=== PATIENT | female | born 1955 | race African-American/Black ===

== ENCOUNTER 2018-07-18 11:02 | Day surgery (SDC) | payer OTHER ==
[2018-07-18] MEDS ORDERED: LR 1,000 ML IV ONE (11:31)
--- NOTE | 2018-07-18 12:12 | PDANEPAE ---
ANE History of Present Illness h/o polyps for colonoscopy ANE Past Medical History - Cardiovascular History Hx Hypertension: Yes Hx Arrhythmias: No Hx Chest Pain: No Hx Coronary Artery / Peripheral Vascular Disease: No Hx CHF / Valvular Disease: No Hx Palpitations: No Cardiovascular History Comment: high chol. pcp monitors bp meds - Pulmonary History Hx COPD: No Hx Asthma/Reactive Airway Disease: No Hx Recent Upper Respiratory Infection: No Hx Oxygen in Use at Home: No Hx Sleep Apnea: No Sleep Apnea Screening Result - Last Documented: Negative - Neurologic History Hx Cerebrovascular Accident: Yes Hx Seizures: No Hx Dementia: No Neurologic History Comment: mini stroke 10/2014 - NO RESIDUALS - Endocrine History Hx Diabetes: No Endocrine History Comment: pre-diabetic, currently trying to lose weight - Renal History Hx Renal Disorders: No - Liver History Hx Hepatic Disorders: No - Neurological & Psychiatric Hx Hx Neurological and Psychiatric Disorders: No - Cancer History Hx Cancer: Yes Cancer History Comment: left breast cancer 1991 had chemo and radiation and bone marrow transplant - Congenital Disorder History Hx Congenital Disorders: No - GI History Hx Gastrointestinal Disorders: Yes Gastrointestinal History Comment: REMVL COLON POLYPS 02/03/16. hx of colonoscopies with radha. occ constipation - Other Health History Other Health History: wears glasses. hx of anemia. OCCAS LEG SWELLING EMERSON - Chronic Pain History Chronic Pain: No - Surgical History Prior Surgeries: right toe surgery 07/2016. colonscopy 06/01/16, 02/03/16. left mastectomy 1991. left oophectomy 1978 ANE Review of Systems Review of Systems: - Exercise capacity METS (RN): 4 METS ANE Patient History - Allergies Allergies/Adverse Reactions: CATS Allergy (Uncoded 04/29/18 10:32) no reaction in 40 yrs - Home Medications Home medications: home medication list seen and reviewed Home Medications: Amlodipine Besylate DAILY 02/03/16 [Last Taken 07/17/18] Aspirin EC 81 mg (OTC) DAILY 02/03/16 [Last Taken 07/04/18] Lovastatin DAILY 02/03/16 [Last Taken 07/17/18] Potassium Cl [Klor-Con 10 meq (RX)] BID 02/03/16 [Last Taken 07/18/18] Triamterene-Hctz 37.5-25 mg Tb DAILY 02/03/16 [Last Taken 07/18/18] Irbesartan DAILY 05/15/16 [Last Taken 07/18/18] Herbals/Supplements -Info Only 04/29/18 [Last Taken 07/17/18] - NPO status NPO Since - Liquids (Date): 07/18/18 NPO Since - Liquids (Time): 03:30 NPO Since - Solids (Date): 07/17/18 NPO Since - Solids (Time): 06:30 - Anes Hx Anes Hx: no prior problems - Smoking Hx Smoking Status: Former smoker - Family Anes Hx Family Hx Anesthesia Complications: none ANE Labs/Vital Signs - Vital Signs Blood Pressure: 150/93 Heart Rate: 82 Respiratory Rate: 16 O2 Sat (%): 96 Height: 170.18 cm Weight: 68.039 kg ANE Physical Exam - Airway Neck exam: FROM Mallampati Score: Class 2 Mouth exam: normal dental/mouth exam - Pulmonary Pulmonary: no respiratory distress - Cardiovascular Cardiovascular: regular rate and rhythym - ASA Status ASA Status: II ANE Anesthesia Plan Anesthesia Plan: GA with mask
--- NOTE | 2018-07-18 12:19 | POSTANESTH ---
Post Anesthetic Evaluation Cardiovascular Status: Normal, Stable Respiratory Status: Normal, Stable Level of Consciousness/Mental Status: Can Participate in Eval Pain Control: Adequate, Prn Tx Ordered Nausea/Vomiting Control: Adequate, Prn Tx Ordered Complications Possibly Related to Anesthesia: None Noted
[2018-07-18] MEDS ORDERED: LIDOCAINE 2% 5 ML SDV ONE (12:22)
[2018-07-18] MEDS ORDERED: PROPOFOL 200 MG/20 ML VIAL ONE ×2 (12:22)
--- NOTE | 2018-07-18 12:33 | PDGENHP ---
History & Physical Chief Complaint: colon polyps History of Present Illness: 63 year old female presents for surveillance of complex right sided polyp. Pertinent Past, Social, Family History: PMHx; breast ca, hypercholesterolemia, htn, pre dm Relevant Physical Exam: HEENT: anicteric. CV: RRR +s1s2. Lungs: CTAB No w/r/ r. Abd: soft nt, + bs. NO guarding or rebound Cardiorespiratory Assessment: ASA 2
[2018-07-18] MEDS ORDERED: ACETAMINOPHEN 500 MG TAB PO PRN (12:52)
[2018-07-18] MEDS ORDERED: fentaNYL 100 MCG/2 ML INJ IVP PRN (12:52)
[2018-07-18] MEDS ORDERED: oxyCODONE IR 5 MG TAB PO PRN (12:52)
[2018-07-18] MEDS ORDERED: NALOXONE HCL 0.4 MG/ML INJ IVP PRN (12:52)
[2018-07-18] MEDS ORDERED: LR 500 ML IV PRN (12:52)
[2018-07-18] MEDS ORDERED: HYDROCODONE/APAP 5/325 TAB PO PRN (12:52)
[2018-07-18] MEDS ORDERED: ONDANSETRON 4 MG/2 ML VIAL IVP PRN (12:52)
[2018-07-18] MEDS ORDERED: PROMETHAZINE HCL 25 MG/ML INJ IVP PRN (12:52)
[2018-07-18] MEDS ORDERED: ALBUTEROL 3 ML DEYVIAL IH PRN (12:52)
--- NOTE | 2018-07-18 13:52 | GIREPORT ---
[facility] Surgical Services - Endoscopy Department Patient Name: Jaci Mckenna Procedure Date: 07/18/2018 12:37 PM Patient Type: Outpatient Attending / ER Physician: Jaime Yancey MD Procedure: Colonoscopy Indications: High risk colon cancer surveillance: Personal history of colonic polyps Patient Profile: 63 year old female with a personal history of polyps presents for surveillance colonoscopy. Providers: Jaime Yancey MD Medicines: Monitored Anesthesia Care Complications: No immediate complications. Estimated blood loss: Minimal. Description of Procedure: After obtaining informed consent, the scope was passed under direct vis ion. Throughout the procedure, the patient's blood pressure, pulse, and oxyg en saturations were monitored continuously. The Colonoscope with irrigatio n channel was introduced through the anus and advanced to the cecum, identified by appendiceal orifice and ileocecal valve. The colonoscopy was performed without difficulty. The patient tolerated the procedure well. The quality of the bowel preparation was good. The ileocecal valve, appendi ceal orifice, and rectum were photographed. Findings: The perianal and digital rectal examinations were normal. Pertinent negatives include no palpable rectal lesions. Diverticula were found in the sigmoid colon. Three sessile polyps were found in the cecum. The polyps were 2 to 3 mm in size. These polyps were removed with a cold biopsy forceps. Resection a nd retrieval were complete. Two sessile polyps were found in the cecum. The polyps were 11 to 16 mm in size. These polyps were removed with a piecemeal technique using a hot snare. Resection and retrieval were complete. A 5 mm polyp was found in the cecum. The polyp was sessile. The polyp w as removed with a cold snare. Resection and retrieval were complete. Five sessile polyps were found in the ascending colon. The polyps were 2 to 4 mm in size. These polyps were removed with a cold biopsy forceps. Resection and retrieval were complete. Three sessile polyps were found in the ascending colon. The polyps were 5 to 7 mm in size. These polyps were removed with a hot snare. Resection and retrieval were complete. Five sessile polyps were found in the transverse colon. The polyps were 2 to 4 mm in size. These polyps were removed with a cold biopsy forceps. Resection and retrieval were complete. Two sessile polyps were found in the transverse colon. The polyps were 4 to 6 mm in size. These polyps were removed with a hot snare. Resection and retrieval were complete. A 5 mm polyp was found in the descending colon. The polyp was sessile. The polyp was removed with a cold snare. Resection and retrieval were compl ete. A 2 mm polyp was found in the descending colon. The polyp was sessile. The polyp was removed with a cold biopsy forceps. Resection and retrieval w ere complete. Three sessile polyps were found in the sigmoid colon. The polyps were 4 to 6 mm in size. These polyps were removed with a cold snare. Resection and retrieval were complete. A 3 mm polyp was found in the rectum. The polyp was sessile. The polyp was removed with a cold snare. Resection and retrieval were complete. Estimated Blood Loss: Estimated blood loss was minimal. Post Op Diagnosis: - Diverticulosis in the sigmoid colon. - Three 2 to 3 mm polyps in the cecum, removed with a cold biopsy force ps. Resected and retrieved. - Two 11 to 16 mm polyps in the cecum, removed piecemeal using a hot sn are. Resected and retrieved. - One 5 mm polyp in the cecum, removed with a cold snare. Resected and retrieved. - Five 2 to 4 mm polyps in the ascending colon, removed with a cold bio psy forceps. Resected and retrieved. - Three 5 to 7 mm polyps in the ascending colon, removed with a hot sna re. A 6mm polyp was noted adjacent to a tattoo consistent with remnant polyp. Resected and retrieved. - Five 2 to 4 mm polyps in the transverse colon, removed with a cold bi opsy forceps. Resected and retrieved. - Two 4 to 6 mm polyps in the transverse colon, removed with a hot snar e. Resected and retrieved. - One 5 mm polyp in the descending colon, removed with a cold snare. Resected and retrieved. - One 2 mm polyp in the descending colon, removed with a cold biopsy forceps. Resected and retrieved. - Three 4 to 6 mm polyps in the sigmoid colon, removed with a cold snar e. Resected and retrieved. - One 3 mm polyp in the rectum, removed with a cold snare. Resected and retrieved. Recommendation: - Discharge patient to home (with escort). - Resume previous diet. - Continue present medications. - No aspirin, ibuprofen, naproxen, or other non-steroidal anti-inflamma tory drugs for 2 weeks. - Await pathology results. - Use fiber, for example Citrucel, Fibercon, Konsyl or Metamucil. - Repeat colonoscopy in 6 months for surveillance after piecemeal polypectomy with propofol. - Thank you for allowing me to participate in the care of your patient. Attending Participation: I personally performed the entire procedure. Jaime Yancey MD Jaime Yancey MD 07/18/2018 1:51:31 PM This report has been signed electronicallyJaime Yancey MD Number of Addenda: 0 Note Initiated On: 07/18/2018 12:37 PM Total Procedure Duration Time 0 hours 44 minutes 31 seconds [email or web address]
[2018-07-18 14:58] VITALS: BP 150/86
== END 2018-07-18 15:01 | disposition home or self-care (01) ==
LOC: FSGY 11:02
PROVIDERS: ATTEND Internal Medicine Gastroenterology
DX: Z12.11 Encounter for screening for malignant neoplasm of colon (principal); D12.0 Benign neoplasm of cecum; D12.2 Benign neoplasm of ascending colon; D12.3 Benign neoplasm of transverse colon; D12.4 Benign neoplasm of descending colon; K63.5 Polyp of colon; K62.1 Rectal polyp; I10 Essential (primary) hypertension; R73.03 Prediabetes; E78.5 Hyperlipidemia, unspecified; Z86.010 Personal history of colon polyps; Z87.891 Personal history of nicotine dependence; Z85.3 Personal history of malignant neoplasm of breast; Z90.12 Acquired absence of left breast and nipple
CPT/HCPCS: J2704